=== PATIENT | female | born 1975 | race Caucasian/White ===

== ENCOUNTER → 2016-08-04 | Outpatient (CLI) | payer OTHER ==
[2016-08-04 14:07] LABS: ABSOLUTE EOSINOPHILS # (AUTO) 0.1 10^3/uL (0.0-0.6); ABSOLUTE LYMPHOCYTES (AUTO) 1.5 10^3/uL (0.5-4.7); ABSOLUTE MONOCYTES (AUTO) 0.3 10^3/uL (0.1-1.4); BASOPHILS % (AUTO) 0.5 % (0-2); EOSINOPHILS % (AUTO) 1.9 % (0-6); HEMATOCRIT 40.7 % (36.0-47.0); HEMOGLOBIN 13.7 g/dL (12.0-15.5); HGB HCT DIFFERENCE 0.4; LYMPHOCYTES % (AUTO) 21.5 % (13-45); MEAN CORPUSCULAR HEMOGLOBIN 31.3 pg (27.0-33.4); MEAN CORPUSCULAR HGB CONC 33.7 g/dL (32.0-36.0); MEAN CORPUSCULAR VOLUME 93 fl (80-97); MONOCYTES % (AUTO) 4.8 % (3-13); RED BLOOD COUNT 4.37 10^6/uL (3.72-5.28); RED CELL DISTRIBUTION WIDTH 13.3 % (11.5-14.0); SEGMENTED NEUTROPHILS % (AUTO) 71.3 % (42-78); WHITE BLOOD COUNT 7.1 10^3/uL (4.0-10.5)
[2016-08-04 14:11] LABS: APPEARANCE,URINE CLEAR; BILIRUBIN,URINE NEGATIVE (NEGATIVE); GLUCOSE, URINE NEGATIVE (NEGATIVE); KETONES,URINE NEGATIVE (NEGATIVE); LEUKOCYTE ESTERASE,URINE NEGATIVE (NEGATIVE); NITRITE,URINE NEGATIVE (NEGATIVE); PROTEIN,URINE NEGATIVE (NEGATIVE); UROBILINOGEN,URINE NEGATIVE mg/dL (<2.0)
[2016-08-04 14:12] LABS: PROTHROMBIN TIME 13.6 SEC (11.4-15.4)
== END ==
LOC: OD 13:12
PROVIDERS: ATTEND Physician Assistant Medical
DX: Z01.812 Encounter for preprocedural laboratory examination (principal); Z79.1 Long term (current) use of non-steroidal anti-inflammatories (NSAID)
CPT/HCPCS: 36415; 81001; 85025; 85610; 85730

== ENCOUNTER 2016-09-01 10:58 | Day surgery (SDC) | payer OTHER ==
[2016-08-26 12:48] LABS: HEMOGLOBIN 14.4 g/dL (12.0-15.5); HGB HCT DIFFERENCE 1.2; MEAN CORPUSCULAR HEMOGLOBIN 31.8 pg (27.0-33.4); MEAN CORPUSCULAR HGB CONC 34.2 g/dL (32.0-36.0); MEAN CORPUSCULAR VOLUME 93 fl (80-97); RED BLOOD COUNT 4.51 10^6/uL (3.72-5.28); RED CELL DISTRIBUTION WIDTH 13.7 % (11.5-14.0); WHITE BLOOD COUNT 8.4 10^3/uL (4.0-10.5)
[2016-08-26 12:50] LABS: APPEARANCE,URINE SLIGHTLY-CLOUDY; BILIRUBIN,URINE NEGATIVE (NEGATIVE); GLUCOSE, URINE NEGATIVE (NEGATIVE); KETONES,URINE NEGATIVE (NEGATIVE); LEUKOCYTE ESTERASE,URINE NEGATIVE (NEGATIVE); NITRITE,URINE NEGATIVE (NEGATIVE); PROTEIN,URINE NEGATIVE (NEGATIVE); URINE SPECIFIC GRAVITY 1.025; UROBILINOGEN,URINE NEGATIVE mg/dL (<2.0)
[2016-08-26 12:52] LABS: PROTHROMBIN TIME 13.7 SEC (11.4-15.4)
--- NOTE | 2016-08-26 21:40 | EKG REPORT ---
SEVERITY:- NORMAL ECG - SINUS RHYTHM : Confirmed by: Taz Saldana 26-Aug-2016 21:39:39
[~2016-09-01 10:58] MED LIST: BUPIVACAINE HCL 0.25% /EPINEPHRINE INJ/PF 30 ML SDV ONE; CEFAZOLIN SODIUM 1 GM in DEXTROSE 5%-WATER 50 ML IV PRN; LACTATED RINGERS 1000 ML IV PRN; LIDOCAINE 0.5% INJ-PF (5 MG/ML) 50 ML SDV SUBCUT PRN; LIDOCAINE 1% INJ-PF (10 MG/ML) 30 ML SDV ONE; LIDOCAINE 2% INJ-PF (20 MG/ML) 10 ML AMPUL ONE; ONDANSETRON HCL INJ/PF 4 MG/2 ML SDV ONE; SODIUM BICARBONATE 8.4% INJ 50 MEQ/50 ML DISP.SYRIN ONE
[2016-09-01] MEDS ORDERED: LIDOCAINE 1% INJ-PF (10 MG/ML) 30 ML SDV ONE (11:36)
[2016-09-01] MEDS: MIDAZOLAM 2 MG/2 ML INJ ONE ×2 (11:40→11:54)
[2016-09-01] MEDS ORDERED: BUPIVACAINE HCL 0.25% /EPINEPHRINE INJ/PF 30 ML SDV ONE (12:35)
[2016-09-01] MEDS ORDERED: FENTANYL CITRATE INJ/PF 250 MCG/5 ML AMPULE ONE (12:44)
[2016-09-01] MEDS ORDERED: MIDAZOLAM 2 MG/2 ML INJ ONE (12:44)
[2016-09-01] MEDS ORDERED: DEXMEDETOMIDINE INJ 80 MCG/20 ML VIAL IV ONE (12:45)
[2016-09-01] MEDS ORDERED: PROPOFOL INJ 200 MG/20 ML VIAL IV ONE (12:45)
[2016-09-01] MEDS ORDERED: NORMAL SALINE INJ/PF 0.9% 10 ML SDV INJ ONE ×2 (13:24)
[2016-09-01] MEDS ORDERED: DIPHENHYDRAMINE HCL 50 MG/ML VIAL IV PRN (13:54)
[2016-09-01] MEDS ORDERED: PROMETHAZINE HCL INJ 25 MG/1 ML VIAL IV PRN ×2 (13:54)
[2016-09-01] MEDS ORDERED: MEPERIDINE HCL/PF INJ 25 MG/1 ML DISP.SYRIN IV PRN (13:54)
[2016-09-01] MEDS ORDERED: MORPHINE SULFATE 10 MG/ML INJ IV PRN (13:54)
[2016-09-01] MEDS ORDERED: OXYCODONE-ACETAMINOPHEN 5-325 MG TABLET PO PRN ×3 (13:54→15:05)
[2016-09-01] MEDS ORDERED: FENTANYL CITRATE INJ/PF 100 MCG/2 ML AMPUL IV PRN ×3 (13:54)
[2016-09-01] MEDS ORDERED: CEFAZOLIN INJ 1 GM VIAL ONE (14:45)
--- NOTE | 2016-09-01 15:13 | OPERATIVE REPORT E ---
Operative Report NAME: JESSICA SCHROEDER : 1975 AGE: 41Y DATE OF SURGERY: 09/01/2016 ROOM: PREOPERATIVE DIAGNOSIS: 1. Phantom limb syndrome. 2. Lumbar radiculopathy. POSTOPERATIVE DIAGNOSIS: 1. Phantom limb syndrome. 2. Lumbar radiculopathy. PROCEDURE PERFORMED: Implantation of permanent spinal cord stimulator Dual Octrode system and implantable pulse generator. OPERATIVE FINDINGS: Dual Octrode placed from the top of T8 to the top of T10 in the vertebral space. SURGEON: KIT RAMIRES M.D. SECONDARY SURGEON: Dr. Agapito Mcneal. ANESTHESIA: Local with sedation. ANTIBIOTICS: Ancef 1 gram given perioperatively. INTRAVENOUS FLUIDS: 1 L of balanced crystalloid solution. ESTIMATED BLOOD LOSS: 5 mL. OPERATIVE INDICATIONS: The patient is a 41-year-old female with phantom limb syndrome, chronic pain and lumbar radiculopathy. The patient underwent a trial of spinal cord stimulator system with excellent result and pain relief. She elected to proceed with permanent implantation. Risks and benefits of the procedure were explained in detail, including, but not limited to, bleeding, bruising, infection, injury to nerves, arteries, veins, loss of bowel or bladder dysfunction, paralysis and potentially even . The patient agreed and understood risks and a greed to proceed. OPERATIVE DETAIL: The patient was taken by the Anesthesia to the operative suite where she was placed in prone position. All pressure points were checked and padded. Standard ASA lines and monitors were applied. Sedation was induced. The patient was prepped and draped in sterile fashion with chlorhexidine gluconate solution, Ioban drape and universal drape. A C-arm was additionally was draped sterilely into the field. AP fluoroscopic guidance was utilized to decide upon planned incision site in the midline. This site was marked as well as incision site on the right buttock. Both incisions were anesthetized with 1% buffered lidocaine using a 25 gauge needle. Deeper tissues were subsequently infiltrated with 0.25% bupivacaine with 1:100,000 epinephrine for both incision. An incision was made in the midline with a 15 blade scalpel. Blunt and electrocautery dissection were utilized to expose the prevertebral fascia. Once adequate hemostasis was confirmed, a 3.5 inch spinal needle was advanced along the tract of the planned Tuohy insertion. This tract was then anesthetized with buffered 1% lidocaine. Subsequently Tuohy provided by the Medtronic kit was advanced under intermittent AP and lateral fluoroscopy guidance to the L1-L2 interspace. Loss of resistance to the epidural space was gained using normal saline. The Octrode lead provided by the Medtronic kit was advanced easily into the posterior epidural space and placement was confirmed with lateral fluoroscopy. The procedure was performed in the exact fashion on the opposite side with the second lead placed at the L1-L2 interspace as well. Leads were easily advanced to the top of the T8 vertebral body in the midline and again a final confirmation of the posterior epidural space was confirmed with lateral fluoroscopic guidance. At this time, the patient was awakened and testing was performed with the help of the Medtronic client representative in the room to make sure the patient was receiving stimulation in all painful areas. Once this was confirmed, the patient was sedated. 0 [address] was utilized to place a pursestring suture around the needle and an additional stay suture for the anchor was placed. This was repeated on the other side for 2 pursestring sutures in total and 2 additional sutures. The needle and stylet were removed from the fascia with lead remaining. The Medtronic anchor was advanced over the lead after tying the pursestring suture and subsequently the anchor was affixed to the vertebral fascia with 0 Mersilene. This was performed in the exact same fashion on the opposite side. Once those leads were appropriately anchored, attention was turned to the right buttock pocket site where incision was made with a 15 blade scalpel. Blunt and Bovie dissection were utilized to create an adequately size pocket for the implantable pulse generator. Once the pocket was in place, tunneling was performed from the midline to the buttock pocket after anesthesia with 1% lidocaine. The leads were tunneled and affixed to the implantable pulse generator. The Medtronic client representative in the room tested impedances and they were found to be appropriate after the leads were inserted into the implantable pulse generator. The leads were further secured using a hex wrench. Both incision sites were copiously irrigated with dilute Betadine solution. Subsequently closure ensued, notably the Medtronic battery was affixed with 0 Mersilene stay suture. Closure then ensued with interrupted 3-0 Vicryl suture. The skin in the midline was then closed with francisca. The buttock incision was closed with interrupted 3-0 Vicryl and Dermabond glue. The skin was cleansed and incision sites were infiltrated with another 5 mL of 0.25% Marcaine. The patient tolerated the procedure well and was accompanied by Anesthesia back to the post anesthesia recovery unit in stable condition. The patient will follow up with [facility] within the next 24 hours. DICTATING PHYSICIAN: KIT RAMIRES M.D. [id number] PHY#: [id number] ID: [id number] JOB#: [id number] ACCT: [id number] cc:KIT RAMIRES M.D. > MTDD
[2016-09-01 16:21] VITALS: BP 105/71
== END 2016-09-01 16:10 | disposition home or self-care (01) ==
LOC: OROUT 10:58
PROVIDERS: ATTEND Pain Medicine Interventional Pain Medicine
PROC: 00HU3MZ Insertion of Neurostimulator Lead into Spinal Canal, Percutaneous Approach (ICD-10-PCS; 2016-09-01)
PROC: 0JH70MZ Insertion of Stimulator Generator into Back Subcutaneous Tissue and Fascia, Open Approach (ICD-10-PCS; principal; 2016-09-01 14:00)
DX: M54.17 Radiculopathy, lumbosacral region (principal); G54.6 Phantom limb syndrome with pain; F45.42 Pain disorder with related psychological factors; M51.26 Other intervertebral disc displacement, lumbar region; M47.896 Other spondylosis, lumbar region; M51.36 Other intervertebral disc degeneration, lumbar region; M25.519 Pain in unspecified shoulder; M54.5 Low back pain; M54.2 Cervicalgia; M47.813 Spondylosis without myelopathy or radiculopathy, cervicothoracic region; F32.89 Other specified depressive episodes; Z79.899 Other long term (current) drug therapy; Z88.5 Allergy status to narcotic agent; Z88.2 Allergy status to sulfonamides; Z88.8 Allergy status to other drugs, medicaments and biological substances; Z89.611 Acquired absence of right leg above knee; Z79.891 Long term (current) use of opiate analgesic; Z01.812 Encounter for preprocedural laboratory examination; Z85.41 Personal history of malignant neoplasm of cervix uteri
CPT/HCPCS: 63685; 93005; 36415; 85027; 85610; 85730; 81001; 71020; 72070; 93010; 63650; C1820; C1778; C1787; J2250; J3490 ×6; J0690; J3010; J2405; J2704; 300

== ENCOUNTER → 2016-10-09 | Outpatient (CLI) | payer OTHER | LOC: RAD 09:58 | PROVIDERS: ATTEND Pathology Neuropathology | DX: M54.2 Cervicalgia (principal); M54.40 Lumbago with sciatica, unspecified side | CPT/HCPCS: 72141 ==

== ENCOUNTER → 2016-10-12 | Outpatient (CLI) | payer OTHER | LOC: RAD 10:46 | PROVIDERS: ATTEND Pathology Neuropathology | DX: M54.5 Low back pain (principal); M54.2 Cervicalgia | CPT/HCPCS: 72148 ==

== ENCOUNTER → 2016-10-14 | Outpatient (CLI) | payer OTHER | LOC: RAD 14:38 | PROVIDERS: ATTEND Orthopaedic Surgery | DX: M25.551 Pain in right hip (principal) ==

== ENCOUNTER → 2016-11-04 | Outpatient (CLI) | payer OTHER | LOC: RAD 15:12 | PROVIDERS: ATTEND Pathology Neuropathology | DX: R51 Headache (principal); G56.01 Carpal tunnel syndrome, right upper limb; M54.2 Cervicalgia | CPT/HCPCS: 70551 ==

== ENCOUNTER 2017-04-11 22:26 | Emergency (ER) | payer OTHER ==
[2017-04-11] MEDS ORDERED: PROCHLORPERAZINE EDISYLATE INJ 10 MG/2 ML VIAL IV ONE (23:13)
[2017-04-11] MEDS ORDERED: NORMAL SALINE 1000 ML 1,000 ML IV ONE (23:13)
[2017-04-11] MEDS ORDERED: DIPHENHYDRAMINE HCL 50 MG/ML VIAL IV ONE (23:13)
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
[2017-04-12 01:14] VITALS: BP 110/64
== END 2017-04-12 00:20 | disposition home or self-care (01) ==
LOC: ER 22:26
DX: G44.209 Tension-type headache, unspecified, not intractable (principal); Z89.611 Acquired absence of right leg above knee; Z90.710 Acquired absence of both cervix and uterus; Z88.2 Allergy status to sulfonamides
CPT/HCPCS: 99283; 96374; 96375; J1200; J0780

== ENCOUNTER → 2017-05-01 | Outpatient (CLI) | payer OTHER ==
--- NOTE | 2017-05-02 11:07 | RADIOLOGY REPORT (SQ) ---
EXAM DESCRIPTION: MRI CERVICAL SPINE WITHOUT COMPLETED DATE/TIME: 05/01/2017 2:28 pm REASON FOR STUDY: CERVICAL DISC DISORDER AT C-5-6 LEVEL WITH RADICULOPATHY M50.122 CERVICAL DISC DI SORDER AT C5-C6 LEVEL WITH RADICULOP COMPARISON: None. TECHNIQUE: Sagittal and Axial imaging includes T1, T2, STIR and gradient echo sequences. LIMITATIONS: Mild motion artifact. FINDINGS: ALIGNMENT: Normal. VERTEBRAE: Intact. BONE MARROW: Normal. No marrow replacement or reactive changes. DISCS: Mild decreased disc signal at multiple levels. HARDWARE: None in the spine. CORD AND BASE OF BRAIN: Normal in size and signal intensity. SOFT TISSUES: Scattered subcentimeter lymph nodes. Right submandibular gland atrophic or absent. C1-C2: No significant spinal stenosis. C2-C3: No significant spinal stenosis or exit foraminal stenosis. C3-C4: No significant spinal stenosis or exit foraminal stenosis. C4-C5: No significant spinal stenosis or exit foraminal stenosis. C5-C6: Left uncovertebral spurring with left foraminal narrowing, up to moderate. C6-C7: Bilateral uncovertebral spurring with associated foraminal narrowing, grossly moderate. C7-T1: Mild bilateral foraminal encroachment. UPPER THORACIC: Incompletely imaged. No significant spinal stenosis or exit foraminal stenosis. OTHER: No other significant finding. IMPRESSION: 1. Cervical spondylosis with uncovertebral spurs and associated foraminal narrowing, mo st notable at C5-6 and C6-7. No cord compression or significant central stenosis. No spinal malalig nment, fracture or bone lesion. TECHNICAL DOCUMENTATION: JOB ID: [id number] [employer]- All Rights Reserved
== END ==
LOC: RAD 04-30 18:30
PROVIDERS: ATTEND Neurological Surgery
DX: M50.122 Cervical disc disorder at C5-C6 level with radiculopathy (principal)
CPT/HCPCS: 72141